=== PATIENT | male | born 1985 | race American Indian/Alaskan Native ===

== ENCOUNTER 2017-06-14 22:22 | Emergency (ER) | payer OTHER, SELFPAY ==
[2017-06-09 21:08] LABS: Eosinophils % (Auto) 0.6 % (0.0-4.3); Hematocrit 48.7 % (35.5-45.6); Hemoglobin 16.6 gm/dl (11.8-15.2); Mean Corpuscular HGB Conc 34 % (32-34); Mean Corpuscular Hemoglobin 31 pg (28-32); Mean Corpuscular Volume 90 fl (84-94); Platelet Count 164 K/mm3 (140-440); Red Blood Count 5.39 M/mm3 (3.65-5.03); Red Cell Distribution Width 13.7 % (13.2-15.2); White Blood Count 7.8 K/mm3 (4.5-11.0)
[2017-06-09 21:09] LABS: Basophils % (Auto) 0.6 % (0.0-1.8)
[2017-06-09 21:19] LABS: Alanine Aminotransferase 9 units/L (7-56); Albumin 4.4 g/dL (3.9-5); Albumin/Globulin Ratio 1.3 %; Alkaline Phosphatase 40 units/L (35-129); Anion Gap 22 mmol/L; BUN/Creatinine Ratio 16.66; Blood Urea Nitrogen 20 mg/dL (9-20); Carbon Dioxide 26 mmol/L (22-30); Chloride 99.1 mmol/L (98-107); Glucose 96 mg/dL (75-100); Potassium 5.7 mmol/L (3.6-5.0); Sodium 141 mmol/L (137-145); Total Protein 7.7 g/dL (6.3-8.2)
--- NOTE | 2017-06-09 21:30 | Emergency Department Report ---
ED Psych HPI - General Chief Complaint: Psych Stated Complaint: AMS Time Seen by Provider: 06/09/17 19:12 Source: police, EMS Mode of arrival: Stretcher - History of Present Illness MD Complaint: other (acute psychosis) -: Gradual Associated Psychiatric Symptoms: other Quality: intermittent Improves With: none Associated Symptoms: denies other symptoms If Self Harm: other Details of Plan: Patient was incarcerated, was brought to ED for acting strange. Has not eaten or drank since he was arrested according to the officers 2 weeks ago. Has a history of schizophrenia, is staring in the blank, not interacting with other people. - Related Data Home Medications Medication Instructions Recorded Confirmed Last Taken Unobtainable 06/10/17 06/10/17 Unknown Allergies Allergy/AdvReac Type Severity Reaction Status Date / Time No Known Allergies Allergy Verified 06/09/17 19:46 ED Review of Systems ROS: Stated complaint: AMS Other details as noted in HPI Comment: Unobtainable due to pts medical conditions ED Past Medical Hx - Past Medical History Hx Psychiatric Treatment: Yes - Surgical History Past Surgical History?: No - Family History Family history: hypertension - Social History Smoking Status: Unknown if ever smoked - Medications Home Medications: Home Medications Medication Instructions Recorded Confirmed Last Taken Type Unobtainable 06/10/17 06/10/17 Unknown History ED Physical Exam - General Limitations: Altered Mental Status General appearance: alert - Head Head exam: Present: atraumatic - Eye Eye exam: Present: normal appearance, PERRL, EOMI Pupils: Present: normal accommodation - ENT ENT exam: Present: normal exam, normal orophraynx - Neck Neck exam: Present: normal inspection - Respiratory Respiratory exam: Present: normal lung sounds bilaterally - Cardiovascular Cardiovascular Exam: Present: regular rate, normal rhythm - GI/Abdominal GI/Abdominal exam: Present: soft - Extremities Exam Extremities exam: Present: normal inspection - Back Exam Back exam: Present: normal inspection - Neurological Exam Neurological exam: Present: alert, altered, oriented X3 - Psychiatric Psychiatric exam: Present: depressed, agitated, flat affect - Skin Skin exam: Present: warm, dry ED Course Vital Signs 06/09/17 06/09/17 06/09/17 18:47 18:52 21:17 Temperature 99.0 F Pulse Rate 88 74 Respiratory 16 18 Rate Blood Pressure 112/87 Blood Pressure 114/79 [Left] Blood Pressure [Right] O2 Sat by Pulse 98 98 Oximetry 06/10/17 06/10/17 06/10/17 18:21 18:22 20:04 Temperature 98.4 F Pulse Rate 107 H 81 Respiratory 16 16 18 Rate Blood Pressure Blood Pressure 127/84 83/57 [Left] Blood Pressure [Right] O2 Sat by Pulse 100 100 99 Oximetry 06/11/17 06/11/17 06/11/17 08:34 13:58 18:40 Temperature 98 F 98.6 F 98.1 F Pulse Rate 77 72 78 Respiratory 16 14 14 Rate Blood Pressure Blood Pressure 108/57 110/62 99/65 [Left] Blood Pressure [Right] O2 Sat by Pulse 100 96 97 Oximetry 06/11/17 06/12/17 06/13/17 20:24 22:00 11:34 Temperature 98.5 F 98.8 F 98.6 F Pulse Rate 99 H 68 70 Respiratory 20 18 20 Rate Blood Pressure Blood Pressure 120/64 104/65 110/70 [Left] Blood Pressure [Right] O2 Sat by Pulse 99 98 100 Oximetry 06/13/17 06/14/17 06/14/17 22:00 07:54 07:55 Temperature 97.8 F 98.4 F Pulse Rate 59 L 60 Respiratory 16 18 18 Rate Blood Pressure Blood Pressure 116/76 92/60 [Left] Blood Pressure [Right] O2 Sat by Pulse 100 100 100 Oximetry 06/14/17 06/16/17 06/16/17 20:38 08:35 12:40 Temperature 98.6 F 97.8 F Pulse Rate 64 80 Respiratory 16 18 18 Rate Blood Pressure Blood Pressure [Left] Blood Pressure 116/72 111/67 [Right] O2 Sat by Pulse 100 98 98 Oximetry 06/16/17 06/17/17 06/17/17 20:08 06:12 10:00 Temperature 98 F 98 F Pulse Rate 78 84 Respiratory 18 18 18 Rate Blood Pressure Blood Pressure [Left] Blood Pressure 117/68 114/72 [Right] O2 Sat by Pulse 100 98 98 Oximetry 06/17/17 06/17/17 06/18/17 19:58 20:00 10:00 Temperature 97.6 F 98 F Pulse Rate 74 73 Respiratory 18 19 18 Rate Blood Pressure Blood Pressure [Left] Blood Pressure 113/72 97/67 [Right] O2 Sat by Pulse 99 98 Oximetry 06/18/17 06/18/17 06/19/17 12:43 22:00 07:45 Temperature 97.9 F Pulse Rate 99 H Respiratory 19 18 16 Rate Blood Pressure Blood Pressure [Left] Blood Pressure 107/80 [Right] O2 Sat by Pulse 99 99 Oximetry 06/19/17 11:34 Temperature 98 F Pulse Rate 91 H Respiratory 16 Rate Blood Pressure Blood Pressure [Left] Blood Pressure 106/75 [Right] O2 Sat by Pulse 98 Oximetry - Reevaluation(s) Reevaluation #1: 06/10/17 01:15 While in the ED, police officers advise nursing staff the patient has posted heath, will be released. Due to his apparent psychosis will place on 1013 awaiting psych consultation. Medically clear for psych evaluation. ED Medical Decision Making - Lab Data Result diagrams: 06/09/17 20:44 06/13/17 16:11 Critical care attestation.: If time is entered above; I have spent that time in minutes in the direct care of this critically ill patient, excluding procedure time. ED Disposition Clinical Impression: Acute psychosis Disposition: [id number]/TX-65 PSY HOSP/PSY UNIT Is pt being admited?: No Does the pt Need Aspirin: No Condition: Stable Referrals: PRIMARY CARE, [Primary Care Provider] - 3-5 Days
--- NOTE | 2017-06-09 21:42 | Cat Scan Report ---
FINAL REPORT PROCEDURE: CT HEAD/BRAIN WO CON TECHNIQUE: Computerized tomography of the head was performed without contrast material. HISTORY: ams COMPARISON: No prior studies are available for comparison. FINDINGS: Skull and scalp: Normal. Paranasal sinuses: Diffuse mucosal thickening is noted involving bilateral frontal and ethmoid sinuses.. Ventricles and subarachnoid spaces: Normal. Cerebrum: No evidence of hemorrhage, acute infarction or mass . Cerebellum and brainstem: No evidence of hemorrhage, acute infarction or mass. Vasculature: Normal. Comments: None. IMPRESSION: No acute intracranial abnormality. Chronic frontal and ethmoid sinusitis
--- NOTE | 2017-06-10 07:39 | XRay Report ---
CHEST ONE VIEW INDICATION: Psychiatric medical clearance. COMPARISON: None similar. FINDINGS: Portable, frontal chest radiographs, 2 images, demonstrate normal cardiomediastinal silhouette. Clear lungs. Unremarkable bones. CONCLUSION: No acute disease in the chest. Thank you for the opportunity to participate in this patient's care.
--- NOTE | 2017-06-10 17:42 | Consultation ---
History of Present Illness - Reason for Consult Consult date: 06/10/17 Reason for consult: Mental Health Evaluation Requesting physician: GURMEET MOLINA - Chief Complaint Chief complaint: "Patient nonverbal" - History of Present Psychiatric Illness 31 y.o. black male incarcerated brought to ED for bizarre behavior. When I arrived to his room, patient turned his head. He would not answer to his name or questions asked of him. No gestures of SI/HI's. Patient refused his breakfast this morning. Medications and Allergies Allergies Allergy/AdvReac Type Severity Reaction Status Date / Time No Known Allergies Allergy Verified 06/09/17 19:46 Home Medications Medication Instructions Recorded Confirmed Last Taken Type No Known Home Medications [No 06/12/15 06/12/15 Unknown History Reported Home Medications] Past psychiatric history - Past Medical History Past Medical History: other (Unable to obtain) Past Surgical History: Other (unable to obtain) - Social History Social history: other (unable to obtain) Mental Status Exam - Vital signs Last Vital Signs Temp 99.0 F 06/09/17 18:47 Pulse 74 06/09/17 21:17 Resp 18 06/09/17 21:17 BP 114/79 06/09/17 21:17 Pulse Ox 98 06/09/17 21:17 - Exam Narrative exam: Unable to complete MSE. Results Result Diagrams: 06/09/17 20:44 06/09/17 20:44 Abnormal lab results 06/09/17 06/09/17 06/09/17 Range/Units 20:44 20:44 20:44 RBC 5.39 H (3.65-5.03) M/mm3 Hgb 16.6 H (11.8-15.2) gm/dl Hct 48.7 H (35.5-45.6) % Seg Neutrophils % 76.9 H (40.0-70.0) % Potassium 5.7 H (3.6-5.0) mmol/L Total Creatine Kinase 191 H (55-170) units/L All other labs normal. Assessment and Plan Assessment and plan: Impression: Possible psychosis. He would not answer to his or any other questions. No gestures of SI/HI's. Patient refusing meals. Recommendation/Plan: Continue 1013 with placement to inpatient psy services. Gather collateral information to determine proper dispo. Monitor patient for dehydration and hypoglycemia.
[2017-06-10 18:26] LABS: Urine Drugs of Abuse Note Disclamer
[2017-06-10 18:43] LABS: Bilirubin,Urine NEG (Negative); Blood,Urine NEG (Negative); Ketones,Urine 20 mg/dL (Negative); Leukocyte Esterase,Urine NEG (Negative); Mucus,Urine 3+ /HPF; Nitrite,Urine NEG (Negative)
--- NOTE | 2017-06-11 17:31 | Progress Note ---
Subjective - Reason for Consult Consult date: 06/11/17 Reason for consult: follow up - Chief Complaint Chief complaint: nonverbal 31 y.o. black male who was incarcerated was brought to ED for bizarre behavior. He was observed lying on the floor and later in his bed with his head turned away. He would not answer to his name or questions asked of him. No gestures of SI/HI's. Mental Status Exam - Vital signs Last Vital Signs Temp 98.6 F 06/11/17 13:58 Pulse 72 06/11/17 13:58 Resp 14 06/11/17 13:58 BP 110/62 06/11/17 13:58 Pulse Ox 96 06/11/17 13:58 - Exam Narrative exam: unable to obtain patient uncooperative no eye contact Assessment and Plan Impression: Possible psychosis. He would not answer to his or any other questions. No gestures of SI/HI. Patient refusing meals. Recommendation/Plan: Continue 1013 with placement to inpatient psy services. Gather collateral information to determine proper dispo. Monitor patient for dehydration and hypoglycemia.
--- NOTE | 2017-06-12 16:07 | Progress Note ---
Subjective - Reason for Consult Consult date: 06/12/17 Reason for consult: follow up - Chief Complaint Chief complaint: nonverbal 31 y.o. black male who was incarcerated was brought to ED for bizarre behavior. He would not answer to his name or questions asked of him. He makes eye contact and turns his head in response to attempted interaction. No gestures of SI/HI. CK is 191. Staff report he is eating. Mental Status Exam - Vital signs Last Vital Signs Temp 98.5 F 06/11/17 20:24 Pulse 99 H 06/11/17 20:24 Resp 20 06/11/17 20:24 BP 120/64 06/11/17 20:24 Pulse Ox 99 06/11/17 20:24 Assessment and Plan Impression: Possible psychosis. He would not answer to his or any other questions. No gestures of SI/HI. Staff report he is eating. Recommendation/Plan: Continue 1013 with placement to inpatient psy services. Gather collateral information to determine proper dispo. Monitor patient for dehydration and hypoglycemia.
[2017-06-12] MEDS: ATIVAN PO SCH ×2 (17:40→21:36)
--- NOTE | 2017-06-13 13:06 | Progress Note ---
Subjective - Reason for Consult Consult date: 06/13/17 Reason for consult: follow up - Chief Complaint Chief complaint: nonverbal 31 y.o. black male who was incarcerated was brought to ED for bizarre behavior. He would not answer to his name or questions asked of him. He moved his foot in response to tactile stimulus. He would not make eye contact today. His roommate offered information that he was crouched in the floor watching tv last night. No gestures of SI/HI. Staff report he is eating but he placed his lunch tray in the sink. He may have eaten breakfast according to the nurse and his roommate. Mental Status Exam - Vital signs Last Vital Signs Temp 98.6 F 06/13/17 11:34 Pulse 70 06/13/17 11:34 Resp 20 06/13/17 11:34 BP 110/70 06/13/17 11:34 Pulse Ox 100 06/13/17 11:34 Assessment and Plan MSE: patient uncooperative non verbal psychomotor retardation present Unable to obtain thought process, thought content, mood, or perceptual disturbances Impression: Likely psychosis and catatonia. He would not answer to his or any other questions. No gestures of SI/HI. Staff report he is eating. but it does not appear to be consistent. Recommendation/Plan: Continue 1013 with placement to inpatient psy services. Gather collateral information to determine proper dispo. Monitor patient for dehydration and hypoglycemia. Staff informed to encourage patient to take po Ativan. Consider IV or IM Ativan to treat catatonia.
[2017-06-13] MEDS: ATIVAN PO SCH ×3 (13:19→20:00)
[2017-06-13 14:40] LABS: Potassium TNR mmol/L (3.6-5.0); Sodium TNR mmol/L (137-145)
[2017-06-13 14:41] LABS: Anion Gap TNR mmol/L; BUN/Creatinine Ratio TNR; Blood Urea Nitrogen TNR mg/dL (9-20); Carbon Dioxide TNR mmol/L (22-30); Chloride TNR mmol/L (98-107)
[2017-06-13 14:42] LABS: Calcium TNR mg/dL (8.4-10.2); Creatine Kinase TNR units/L (55-170); Glucose TNR mg/dL (75-100)
[2017-06-13 17:15] LABS: Anion Gap 19 mmol/L; Blood Urea Nitrogen 14 mg/dL (9-20); Calcium 9.3 mg/dL (8.4-10.2); Carbon Dioxide 28 mmol/L (22-30); Chloride 100.9 mmol/L (98-107); Creatine Kinase 423 units/L (55-170); Glucose 91 mg/dL (75-100); Potassium 4.2 mmol/L (3.6-5.0); Sodium 144 mmol/L (137-145)
[2017-06-14] MEDS: ATIVAN PO SCH ×3 (09:26→22:53)
--- NOTE | 2017-06-14 12:47 | Progress Note ---
Subjective - Reason for Consult Consult date: 06/14/17 Reason for consult: Psychiatry Follow-up - Chief Complaint Chief complaint: "Hello" 31 y.o. black male who was incarcerated was brought to ED for bizarre behavior. Today patient is calm, but still uncooperative. He would nod to "yes" when I asked him did he eat his meals yesterday. I decided to asked him more questions and the patient turned his head away and stared at the wall. Per his mother Iesha Carter, her son has a hx of schizophrenia paranoid type. She stated that her son received an injection Nov 2016 in [place], but don't know the name of the medication. Patient did take his PO medication this morning. I observed patient ambulating in his room. Per the staff, no behavioral disturbances overnight. No gestures of SI/HI's. Mental Status Exam - Vital signs Last Vital Signs Temp 98.4 F 06/14/17 07:54 Pulse 60 06/14/17 07:54 Resp 18 06/14/17 07:55 BP 92/60 06/14/17 07:54 Pulse Ox 100 06/14/17 07:55 - Exam Narrative exam: Unable to complete MSE. Assessment and Plan Impression: Historical Dx: Schizophrenia paranoid type. Likely psychosis and Catatonia. Today patient is calm, but still uncooperative. No gestures of SI/HI' s. Staff report he is eating. CK 423 trending up. Recommendation/Plan: Continue 1013 with placement to inpatient psy services. Monitor patient for dehydration and hypoglycemia. Modify Ativan to 1 mg PO QID for catatonia. Staff informed to encourage patient to take Ativan. Recommend GI/ DVT prophylaxis.
[~2017-06-14 22:22] MED LIST: COGENTIN IM ONE; HALDOL IM ONE; HALDOL PO ONE; NACL 0.9% 1000 ML 1,000 ML IV ONE
[2017-06-15] MEDS: ATIVAN PO SCH ×3 (10:20→18:24)
--- NOTE | 2017-06-15 10:43 | Progress Note ---
Subjective - Reason for Consult Consult date: 06/15/17 Reason for consult: Psychiatry Follow-up - Chief Complaint Chief complaint: "Hello" 31 y.o. black male who was incarcerated was brought to ED for bizarre behavior. Today patient is calm and cooperative, but would was nonverbal. He would nod to questions asked of him. He nodded "yes" to eating all his meals, nodded "no" to SI/HI's, AVH's and wanting to shower. Per his assigned RN, she stated having a conversation with his earlier in the day. Patient is compliant with taking his PO medications. Mental Status Exam - Vital signs Last Vital Signs Temp 98.6 F 06/14/17 20:38 Pulse 64 06/14/17 20:38 Resp 16 06/14/17 20:38 BP 116/72 06/14/17 20:38 Pulse Ox 100 06/14/17 20:38 - Exam Narrative exam: Unable to complete the MSE. Assessment and Plan Impression: Historical Dx: Schizophrenia paranoid type. Likely psychosis and Catatonia. Today patient is calm and cooperative. Denies SI/HI's. Patient acknowledge eating his meals. Recommendation/Plan: Continue 1013 with placement to inpatient psy services. Monitor patient for dehydration and hypoglycemia. Modify Ativan to 1 mg PO QID for catatonia. Staff informed to encourage patient to take Ativan. Recommend GI/ DVT prophylaxis. CK ordered.
[2017-06-16] MEDS: ATIVAN PO SCH ×4 (10:48→22:41)
--- NOTE | 2017-06-16 17:02 | Progress Note ---
Subjective - Reason for Consult Consult date: 06/16/17 Reason for consult: follow up - Chief Complaint Chief complaint: "I just didn't want to talk." 31 y.o. black male who was incarcerated was brought to ED for bizarre behavior. Today patient is calm and stood up when spoken to. When asked about his lack of speech for the past few days, he stated "I just didn't want to talk. " He declines to take a shower. Throughout the interview he took his gown on and off exposing himself. Patient is compliant with taking his PO medications. He denies suicidal, homicidal, and AVH. He kept turning to look in the back of the room.. Mental Status Exam - Vital signs Last Vital Signs Temp 97.8 F 06/16/17 08:35 Pulse 80 06/16/17 08:35 Resp 18 06/16/17 12:40 BP 111/67 06/16/17 08:35 Pulse Ox 98 06/16/17 12:40 Assessment and Plan MSE: patient minimally cooperative minimally verbal He denies suicidal, homicidal, and AVH. He kept turning to look in the back of the room. Impression: Historical Dx: Schizophrenia paranoid type. Likely psychosis and Catatonia. Today patient is calm and cooperative. Denies SI/HI's. Patient acknowledge eating his meals. Recommendation/Plan: Continue 1013 with placement to inpatient psy services. Continue Ativan to 1 mg PO QID for catatonia. Consider antipsychotic
--- NOTE | 2017-06-17 11:40 | Progress Note ---
Subjective - Reason for Consult Consult date: 06/17/17 Reason for consult: Psychiatry Follow-up - Chief Complaint Chief complaint: "I don't know" 31 y.o. black male who was incarcerated was brought to ED for bizarre behavior. Today patient is calm, but uncooperative. He did stated 'I don't know " when I asked him about eating his meals. I observed the patient lying on the floor covered with his blanket and gown. He would not remove the the blanket and gown from his face. Patient would not answer anymore questions when asked. No gestures of SI/HI's and AVH's. Patient is compliant with his PO medication. Mental Status Exam - Vital signs Last Vital Signs Temp 98 F 06/17/17 06:12 Pulse 84 06/17/17 06:12 Resp 18 06/17/17 06:12 BP 114/72 06/17/17 06:12 Pulse Ox 98 06/17/17 06:12 - Exam Narrative exam: MSE: Appearance: calm, uncooperative Behavior: poor eye contact Speech: regular rate and tone Mood: unable to assess Affect: flat Thought Process: unable to assess Thought Content: No gestures SI/HI's and AVH's Motor Activity: lying on the floor Cognition: unable to assess Insight: unable to assess Judgment: unable to assess Assessment and Plan Impression: Historical Dx: Schizophrenia paranoid type. Possibly Psychosis and Catatonia. Today patient is calm, but uncooperative. No gestures of SI/HI's. CK 338. Recommendation/Plan: Continue 1013 with placement to inpatient psy services. Monitor patient for dehydration and hypoglycemia. Modify Ativan to 2 mg PO TID for catatonia. Recommend GI/DVT prophylaxis. Consider a antipsychotic.
[2017-06-17] MEDS: ATIVAN PO SCH (20:54)
[2017-06-18] MEDS: ATIVAN PO SCH ×3 (10:26→20:29)
--- NOTE | 2017-06-18 10:58 | Progress Note ---
Subjective - Reason for Consult Consult date: 06/18/17 Reason for consult: follow up - Chief Complaint Chief complaint: "I don't know" 31 y.o. black male who was incarcerated was brought to ED for bizarre behavior. Today patient is calm, but uncooperative. He ate his breakfast. He was arguing with application security engineer about wanting respect. He took his medication by mouth. I observed the patient lying on the floor covered with his blanket and gown prior to that. His nurse today reports he frequently exposes himself. Unable to obtain SI/HI or perceptual disturbances. Mental Status Exam - Vital signs Last Vital Signs Temp 97.6 F 06/17/17 19:58 Pulse 74 06/17/17 19:58 Resp 19 06/17/17 20:00 BP 113/72 06/17/17 19:58 Pulse Ox 99 06/17/17 19:58 - Exam Narrative exam: unable to obtain patient uncooperative no eye contact argumentative Assessment and Plan MSE: patient minimally cooperative more verbal today Unable to obtain suicidal, homicidal, and AVH. Poor hygiene Impression: Historical Dx: Schizophrenia paranoid type. Likely psychosis ( continues )and Catatonia (resolving). Today patient is calm and cooperative. Denies SI/HI's. Patient's meal tray is empty with evidence he had eaten it. Recommendation/Plan: Continue 1013 with placement to inpatient psy services. Continue Ativan to 1 mg PO QID for catatonia. Consider antipsychotic
[2017-06-19 11:35] VITALS: BP 106/75
== END 2017-06-19 20:00 ==
LOC: ED 22:22
DX: F23 Brief psychotic disorder (principal); F20.9 Schizophrenia, unspecified
CPT/HCPCS: 36415; 70450; 71010; 80048; 80053; 80178; 80307; 81001; 82550; 82553; 84443; 85025; 96372; 99285; G0480; J0515; J1630; 80320

== ENCOUNTER 2018-03-29 15:08 | Emergency (ER) | payer MEDICAID, OTHER ==
[2018-03-29 15:46] LABS: Basophils % (Auto) 0.4 % (0.0-1.8); Eosinophils # (Auto) 0.1 K/mm3 (0.0-0.4); Eosinophils % (Auto) 0.8 % (0.0-4.3); Hematocrit 48.6 % (35.5-45.6); Hemoglobin 15.7 gm/dl (11.8-15.2); Lymphocytes # (Auto) 0.9 K/mm3 (1.2-5.4); Lymphocytes % (Auto) 12.5 % (13.4-35.0); Mean Corpuscular HGB Conc 32 % (32-34); Mean Corpuscular Hemoglobin 30 pg (28-32); Mean Corpuscular Volume 93 fl (84-94); Monocytes # (Auto) 0.6 K/mm3 (0.0-0.8); Monocytes % (Auto) 7.5 % (0.0-7.3); Platelet Count 233 K/mm3 (140-440); Red Blood Count 5.21 M/mm3 (3.65-5.03); Red Cell Distribution Width 14.3 % (13.2-15.2)
[2018-03-29 15:56] LABS: BUN/Creatinine Ratio 13; Blood Urea Nitrogen 12 mg/dL (9-20); Calcium 9.5 mg/dL (8.4-10.2); Hemolysis Index 13
[2018-03-29 16:09] LABS: Amphetamine Screen,Urine PRESUMPTIVE NEGATIVE; Benzodiazepines Screen,Urine PRESUMPTIVE NEGATIVE; Cocaine Screen,Urine PRESUMPTIVE NEGATIVE; Methadone Screen,Urine PRESUMPTIVE NEGATIVE; Opiate Screen,Urine PRESUMPTIVE NEGATIVE
[2018-03-29 16:12] LABS: Bilirubin,Urine NEG (Negative); Blood,Urine NEG (Negative); Mucus,Urine 3+ /HPF
[2018-03-29 16:13] LABS: Color,Urine Yellow (Yellow)
[2018-03-29 16:26] LABS: Cannabinoid Screen,Urine PRESUMPTIVE POSITIVE
--- NOTE | 2018-03-29 20:53 | Emergency Department Report ---
ED Psych HPI - General Chief Complaint: Psych Stated Complaint: 1013 Time Seen by Provider: 03/29/18 16:27 Source: EMS Mode of arrival: Stretcher Limitations: No Limitations - History of Present Illness Initial Comments: 32-year-old male with a a significant psychiatric history presents to the Hospital with abnormal behavior. Patient was found outside walking around with his shirt off and pacing. Presented with a signed 1013. As per this 1013 patient patient has not been on medications since October has been delusional and pacing around without clubbing for several days. He intermittently responds to questions and is mostly nonresponsive. As per Medical record review he was seen in the ER May 2017 for similar symptoms and catatonic behavior [facility] Related Data Home Medications Medication Instructions Recorded Confirmed Last Taken Unobtainable 06/10/17 03/29/18 Unknown Allergies Allergy/AdvReac Type Severity Reaction Status Date / Time No Known Allergies Allergy Verified 03/29/18 15:33 ED Review of Systems ROS: Stated complaint: 1013 Other details as noted in HPI Comment: Unobtainable due to pts medical conditions ED Past Medical Hx - Past Medical History Previous Medical History?: Yes Hx Psychiatric Treatment: Yes - Surgical History Past Surgical History?: No - Social History Smoking Status: Never Smoker - Medications Home Medications: Home Medications Medication Instructions Recorded Confirmed Last Taken Type Unobtainable 06/10/17 03/29/18 Unknown History ED Physical Exam - General Limitations: No Limitations - Other Other exam information: General: No limitations, patient is alert in no acute distress Head exam: Atraumatic, normocephalic Eyes exam: Normal appearance, pupils equal reactive to light, extraocular movements intact ENT: Moist mucous membrane, normal oropharynx Neck exam: Normal inspection, full range of motion, no meningismus nontender Respiratory exam: Clear to auscultation bilateral, no wheezes, rales, crackles Cardiovascular: Normal rate and rhythm, normal heart sounds Abdomen: Soft, nondistended, and nontender, with normal bowel sounds, no rebound, or guarding Extremity: Full range of motion normal inspection no deformity Back: Normal Inspection, full range of motion, no tenderness Neurologic: Alert, speech clear when he decides to speak, no facial droop, no motor or sensory deficit Psychiatric: Flat affect Skin: Warm, dry, intact ED Course Vital Signs 03/29/18 03/29/18 15:41 15:53 Temperature 98.6 F Pulse Rate 100 H Respiratory 16 16 Rate Blood Pressure 114/76 O2 Sat by Pulse 100 100 Oximetry ED Medical Decision Making - Lab Data Result diagrams: 03/29/18 15:35 03/29/18 15:35 Lab Results 03/29/18 03/29/18 03/29/18 Range/Units 15:32 15:32 15:35 WBC (4.5-11.0) K/mm3 RBC (3.65-5.03) M/mm3 Hgb (11.8-15.2) gm/dl Hct (35.5-45.6) % MCV (84-94) fl MCH (28-32) pg MCHC (32-34) % RDW (13.2-15.2) % Plt Count (140-440) K/mm3 Lymph % (Auto) (13.4-35.0) % Bowie % (Auto) (0.0-7.3) % Eos % (Auto) (0.0-4.3) % Baso % (Auto) (0.0-1.8) % Lymph # (1.2-5.4) K/mm3 Bowie # (0.0-0.8) K/mm3 Eos # (0.0-0.4) K/mm3 Baso # (0.0-0.1) K/mm3 Seg Neutrophils % (40.0-70.0) % Seg Neutrophils # (1.8-7.7) K/mm3 Sodium (137-145) mmol/L Potassium (3.6-5.0) mmol/L Chloride (98-107) mmol/L Carbon Dioxide (22-30) mmol/L Anion Gap mmol/L BUN (9-20) mg/dL Creatinine (0.8-1.5) mg/dL Estimated GFR ml/min BUN/Creatinine Ratio % Glucose (75-100) mg/dL Calcium (8.4-10.2) mg/dL Urine Color Yellow (Yellow) Urine Turbidity Clear (Clear) Urine pH 5.0 (5.0-7.0) Ur Specific [place] 1.030 (1.003-1.030) Urine Protein 30 mg/dl (Negative) mg/dL Urine Glucose (UA) Neg (Negative) mg/dL Urine Ketones 20 (Negative) mg/dL Urine Blood Neg (Negative) Urine Nitrite Neg (Negative) Urine Bilirubin Neg (Negative) Urine Urobilinogen 4.0 (<2.0) mg/dL Ur Leukocyte Esterase Neg (Negative) Urine WBC (Auto) 6.0 (0.0-6.0) /HPF Urine RBC (Auto) 7.0 (0.0-6.0) /HPF Urine Mucus 3+ /HPF Salicylates < 0.3 L (2.8-20.0) mg/dL Urine Opiates Screen Presumptive negative Urine Methadone Screen Presumptive negative Acetaminophen (10.0-30.0) ug/mL Ur Barbiturates Screen Presumptive negative Ur Phencyclidine Scrn Presumptive negative Ur Amphetamines Screen Presumptive negative U Benzodiazepines Scrn Presumptive negative Urine Cocaine Screen Presumptive negative U Marijuana (THC) Screen Presumptive positive Drugs of Abuse Note Disclamer Plasma/Serum Alcohol (0-0.07) % 03/29/18 03/29/18 03/29/18 Range/Units 15:35 15:35 15:35 WBC (4.5-11.0) K/mm3 RBC (3.65-5.03) M/mm3 Hgb (11.8-15.2) gm/dl Hct (35.5-45.6) % MCV (84-94) fl MCH (28-32) pg MCHC (32-34) % RDW (13.2-15.2) % Plt Count (140-440) K/mm3 Lymph % (Auto) (13.4-35.0) % [place] % (Auto) (0.0-7.3) % Eos % (Auto) (0.0-4.3) % Baso % (Auto) (0.0-1.8) % Lymph # (1.2-5.4) K/mm3 [place]ie # (0.0-0.8) K/mm3 Eos # (0.0-0.4) K/mm3 Baso # (0.0-0.1) K/mm3 Seg Neutrophils % (40.0-70.0) % Seg Neutrophils # (1.8-7.7) K/mm3 Sodium 139 (137-145) mmol/L Potassium 3.5 L (3.6-5.0) mmol/L Chloride 97.9 L (98-107) mmol/L Carbon Dioxide 27 (22-30) mmol/L Anion Gap 18 mmol/L BUN 12 (9-20) mg/dL Creatinine 0.9 (0.8-1.5) mg/dL Estimated GFR > 60 ml/min BUN/Creatinine Ratio 13 % Glucose 89 (75-100) mg/dL Calcium 9.5 (8.4-10.2) mg/dL Urine Color (Yellow) Urine Turbidity (Clear) Urine pH (5.0-7.0) Ur Specific [place] (1.003-1.030) Urine Protein (Negative) mg/dL Urine Glucose (UA) (Negative) mg/dL Urine Ketones (Negative) mg/dL Urine Blood (Negative) Urine Nitrite (Negative) Urine Bilirubin (Negative) Urine Urobilinogen (<2.0) mg/dL Ur Leukocyte Esterase (Negative) Urine WBC (Auto) (0.0-6.0) /HPF Urine RBC (Auto) (0.0-6.0) /HPF Urine Mucus /HPF Salicylates (2.8-20.0) mg/dL Urine Opiates Screen Urine Methadone Screen Acetaminophen < 5.0 L (10.0-30.0) ug/mL Ur Barbiturates Screen Ur Phencyclidine Scrn Ur Amphetamines Screen U Benzodiazepines Scrn Urine Cocaine Screen U Marijuana (THC) Screen Drugs of Abuse Note Plasma/Serum Alcohol < 0.01 (0-0.07) % 03/29/18 Range/Units 15:35 WBC 7.4 (4.5-11.0) K/mm3 RBC 5.21 H (3.65-5.03) M/mm3 Hgb 15.7 H (11.8-15.2) gm/dl Hct 48.6 H (35.5-45.6) % MCV 93 (84-94) fl MCH 30 (28-32) pg MCHC 32 (32-34) % RDW 14.3 (13.2-15.2) % Plt Count 233 (140-440) K/mm3 Lymph % (Auto) 12.5 L (13.4-35.0) % Bowie % (Auto) 7.5 H (0.0-7.3) % Eos % (Auto) 0.8 (0.0-4.3) % Baso % (Auto) 0.4 (0.0-1.8) % Lymph # 0.9 L (1.2-5.4) K/mm3 Bowie # 0.6 (0.0-0.8) K/mm3 Eos # 0.1 (0.0-0.4) K/mm3 Baso # 0.0 (0.0-0.1) K/mm3 Seg Neutrophils % 78.8 H (40.0-70.0) % Seg Neutrophils # 5.9 (1.8-7.7) K/mm3 Sodium (137-145) mmol/L Potassium (3.6-5.0) mmol/L Chloride (98-107) mmol/L Carbon Dioxide (22-30) mmol/L Anion Gap mmol/L BUN (9-20) mg/dL Creatinine (0.8-1.5) mg/dL Estimated GFR ml/min BUN/Creatinine Ratio % Glucose (75-100) mg/dL Calcium (8.4-10.2) mg/dL Urine Color (Yellow) Urine Turbidity (Clear) Urine pH (5.0-7.0) Ur Specific [place] (1.003-1.030) Urine Protein (Negative) mg/dL Urine Glucose (UA) (Negative) mg/dL Urine Ketones (Negative) mg/dL Urine Blood (Negative) Urine Nitrite (Negative) Urine Bilirubin (Negative) Urine Urobilinogen (<2.0) mg/dL Ur Leukocyte Esterase (Negative) Urine WBC (Auto) (0.0-6.0) /HPF Urine RBC (Auto) (0.0-6.0) /HPF Urine Mucus /HPF Salicylates (2.8-20.0) mg/dL Urine Opiates Screen Urine Methadone Screen Acetaminophen (10.0-30.0) ug/mL Ur Barbiturates Screen Ur Phencyclidine Scrn Ur Amphetamines Screen U Benzodiazepines Scrn Urine Cocaine Screen U Marijuana (THC) Screen Drugs of Abuse Note Plasma/Serum Alcohol (0-0.07) % - Medical Decision Making Patient is medically clear for psychiatric admission. 1013 has been signed. - Differential Diagnosis psychosis, catatonia, delusion Critical Care Time: No Critical care attestation.: If time is entered above; I have spent that time in minutes in the direct care of this critically ill patient, excluding procedure time. ED Disposition Clinical Impression: Selective mutism, Bizarre behavior, Psychiatric disorder, Medical clearance for psychiatric admission Disposition: [id number]/TX-65 PSY HOSP/PSY UNIT Is pt being admited?: No Condition: Stable Time of Disposition: 20:57
[2018-03-30 04:39] VITALS: BP 118/85
--- NOTE | 2018-03-30 13:37 | Consultation ---
History of Present Illness - Reason for Consult Consult date: 03/30/18 Reason for consult: Initial Psychiatric Evaluation Medications and Allergies Allergies Allergy/AdvReac Type Severity Reaction Status Date / Time No Known Allergies Allergy Verified 03/29/18 15:33 Home Medications Medication Instructions Recorded Confirmed Last Taken Type Unobtainable 06/10/17 03/29/18 Unknown History Mental Status Exam - Vital signs Last Vital Signs Temp 98.8 F 03/30/18 04:38 Pulse 88 03/30/18 04:38 Resp 18 03/30/18 04:38 BP 118/85 03/30/18 04:38 Pulse Ox 98 03/30/18 04:38 - Exam Narrative exam: Mental Status Exam: General Appearance: Casually dressed- hospital gown Attitude/ Behavior: Cooperative Sensorium: Distracted Orientation: Alert and oriented x 4 (person, place, time , and situation) Psychomotor & Musculoskeletal Activity: Ambulatory-pacing Speech: Normal rate and tone... Slow at times Mood: "Good" Affect: Constricted Thought Process: Circumstantial Thought Content: Impoverished, Paranoia (?) Suicidal ideation/plan: Patient denies Homicidal ideation/plan: Patient denies Insight: Poor Judgment: Limited Results Result Diagrams: 03/29/18 15:35 03/29/18 15:35 Abnormal lab results 03/29/18 03/29/18 03/29/18 Range/Units 15:35 15:35 15:35 RBC (3.65-5.03) M/mm3 Hgb (11.8-15.2) gm/dl Hct (35.5-45.6) % Lymph % (Auto) (13.4-35.0) % [place] % (Auto) (0.0-7.3) % Lymph # (1.2-5.4) K/mm3 Seg Neutrophils % (40.0-70.0) % Potassium 3.5 L (3.6-5.0) mmol/L Chloride 97.9 L (98-107) mmol/L Salicylates < 0.3 L (2.8-20.0) mg/dL Acetaminophen < 5.0 L (10.0-30.0) ug/mL 03/29/18 Range/Units 15:35 RBC 5.21 H (3.65-5.03) M/mm3 Hgb 15.7 H (11.8-15.2) gm/dl Hct 48.6 H (35.5-45.6) % Lymph % (Auto) 12.5 L (13.4-35.0) % [place] % (Auto) 7.5 H (0.0-7.3) % Lymph # 0.9 L (1.2-5.4) K/mm3 Seg Neutrophils % 78.8 H (40.0-70.0) % Potassium (3.6-5.0) mmol/L Chloride (98-107) mmol/L Salicylates (2.8-20.0) mg/dL Acetaminophen (10.0-30.0) ug/mL All other labs normal.
== END 2018-03-30 04:39 ==
LOC: ED 15:08
DX: F94.0 Selective mutism (principal); F29 Unspecified psychosis not due to a substance or known physiological condition
CPT/HCPCS: 36415; 80048; 80307; 81001; 85025; 99285; G0480; 80320